=== PATIENT | female | born 1970 | race Caucasian/White ===

== ENCOUNTER → 2018-07-21 | Outpatient (CLI) | payer MEDICAID ==
--- NOTE | 2018-07-27 10:39 | MM ---
Reason for exam: screening (asymptomatic). Last mammogram was performed 5 years and 2 months ago. History: Patient history of other cancer and had first child at age 35. Family history of breast cancer in mother at age 55 and breast cancer in paternal aunt at age 50. Physical Findings: A clinical breast exam by your physician is recommended on an annual basis and results should be correlated with mammographic findings. MG 3D Screening Mammo W/Cad Bilateral CC and MLO view(s) were taken. Prior study comparison: June 03, 2013, mammogram, performed at [facility]. May 03, 2013, mammogram, performed at [facility]. Finding: There is an equal density (isodense), indistinct round mass in the lower outer quadrant, middle position of the right breast. New finding since June 03, 2013 and May 03, 2013. ASSESSMENT: Incomplete: need additional imaging evaluation, BI-RAD 0 RECOMMENDATION: Ultrasound of the right breast. [facility] will attempt to contact patient to return for ultrasound.
== END | disposition home or self-care (01) ==
LOC: RADMAMWWP 07:45
PROVIDERS: ATTEND Family Medicine
DX: Z12.31 Encounter for screening mammogram for malignant neoplasm of breast (principal)
CPT/HCPCS: 77063; 77067

== ENCOUNTER → 2018-08-06 | Outpatient (CLI) | payer MEDICAID ==
--- NOTE | 2018-08-06 08:45 | USB ---
Reason for exam: additional evaluation requested from abnormal screening. History: Patient history of other cancer and had first child at age 35. Family history of breast cancer in mother at age 55 and breast cancer in paternal aunt at age 50. Physical Findings: Nurse did not find any significant physical abnormalities on exam. US Breast Workup Limited RT Right limited breast ultrasound including focal area of concern, retroareolar and axilla demonstrates a 0.7 x 0.9 x 0.4cm oval, cystic lesion at 9 o'clock. These results were verbally communicated with the patient and result sheet given to the patient on 08/06/18. ASSESSMENT: Benign, BI-RAD 2 RECOMMENDATION: Return to routine screening mammogram schedule for both breasts.
== END | disposition home or self-care (01) ==
LOC: RADUSWWP 07:38
PROVIDERS: ATTEND Family Medicine
DX: R92.8 Other abnormal and inconclusive findings on diagnostic imaging of breast (principal)

== ENCOUNTER → 2019-01-05 | Outpatient (CLI) | payer MEDICAID ==
--- NOTE | 2019-01-05 09:18 | XR ---
EXAMINATION TYPE: XR KUB DATE OF EXAM: 01/05/2019 COMPARISON: None INDICATION: Back pain abdomen pain TECHNIQUE: Single view abdomen supine view FINDINGS: There is nonspecific bowel gas within small bowel loops as well as colon. Some mild fecal debris is w ithin the descending colon. Psoas margins are normal. No organomegaly is present. An IUD is within the midline. Gallstones are the right upper quadrant. IMPRESSION: 1. Cholelithiasis. 2. Nonspecific bowel gas pattern
--- NOTE | 2019-01-05 09:25 | XR ---
EXAMINATION TYPE: XR lumbar spine 2 or 3V DATE OF EXAM: 01/05/2019 COMPARISON: None HISTORY: Back pain TECHNIQUE: Three-view lumbar spine FINDINGS: There is narrowing of the L5-S1 disc height. Mild narrowing L4-5 disc height is present. Ve rtebral body heights are preserved. There 5 lumbar-type vertebral bodies. The pedicles are intact. There is a superior endplate Schmorl's node at T12. IMPRESSION: 1. Degenerative disc changes L4-5 L5-S1.
== END | disposition home or self-care (01) ==
LOC: RADXRMAIN 08:14
PROVIDERS: ATTEND Family Medicine
DX: M47.816 Spondylosis without myelopathy or radiculopathy, lumbar region (principal); M47.817 Spondylosis without myelopathy or radiculopathy, lumbosacral region; K80.20 Calculus of gallbladder without cholecystitis without obstruction
CPT/HCPCS: 72100; 74018

== ENCOUNTER → 2019-01-26 | Outpatient (CLI) | payer MEDICAID ==
--- NOTE | 2019-01-26 09:11 | US ---
EXAMINATION TYPE: US abdomen limited DATE OF EXAM: 01/26/2019 COMPARISON: NONE CLINICAL HISTORY: K80.20 Cholelithiasis. xray showed gb stones, increase in gas, belching and stomach pains EXAM MEASUREMENTS: Liver Length: 13.2 cm Gallbladder Wall: 0.3 cm CBD: 0.6 cm Right Kidney: 11.0 x 5.2 x 5.2 cm Pancreas: wnl Liver: wnl Gallbladder: fundal stones seen with neck fold noted Evidence for sonographic Rico's sign: not during exam but patient stays it normally it hurts to push there. CBD: wnl Right Kidney: wnl IMPRESSION: 1. Uncomplicated cholelithiasis.
== END | disposition home or self-care (01) ==
LOC: RADUSWWP 07:29
PROVIDERS: ATTEND Family Medicine
DX: K80.20 Calculus of gallbladder without cholecystitis without obstruction (principal)
CPT/HCPCS: 76705

== ENCOUNTER → 2019-02-07 | Outpatient (CLI) | payer MEDICAID ==
[2019-02-07 11:15] LABS: Basophils # (A) 0.1 k/uL (0-0.2); Basophils % (A) 2 %; Eosinophils # (A) 0.3 k/uL (0-0.7); Eosinophils % (A) 6 %; HCT 44.4 % (34.0-46.0); HGB 14.9 gm/dL (11.4-16.0); Lymphocytes # (A) 1.6 k/uL (1.0-4.8); Lymphocytes % (A) 33 %; MCH 31.8 pg (25.0-35.0); MCHC 33.6 g/dL (31.0-37.0); MCV 94.4 fL (80.0-100.0); Mean Platelet Volume 7.7; Monocytes # (A) 0.3 k/uL (0-1.0); Monocytes % (A) 6 %; Neutrophils # (A) 2.4 k/uL (1.3-7.7); Neutrophils % (A) 51 %; Platelet Count 220 k/uL (150-450); RDW 12.3 % (11.5-15.5); WBC 4.8 k/uL (3.8-10.6)
[2019-02-07 17:59] LABS: Folate, Serum 12.9 ng/mL
[2019-02-07 18:02] LABS: Hemoglobin A1C 5.3 % (4.0-6.0)
== END | disposition home or self-care (01) ==
LOC: LABWHC1 07:40
PROVIDERS: ATTEND Student in an Organized Health Care Education/Training Program
DX: R94.5 Abnormal results of liver function studies (principal); R71.8 Other abnormality of red blood cells; K80.20 Calculus of gallbladder without cholecystitis without obstruction; K58.0 Irritable bowel syndrome with diarrhea; E66.3 Overweight; Z87.891 Personal history of nicotine dependence; Z88.2 Allergy status to sulfonamides
CPT/HCPCS: 36415; 82607; 82746; 83036; 85025

== ENCOUNTER → 2019-02-11 | Outpatient (CLI) | payer MEDICAID | LOC: LABWHC1 07:44 | PROVIDERS: ATTEND Student in an Organized Health Care Education/Training Program | DX: D51.9 Vitamin B12 deficiency anemia, unspecified (principal) | CPT/HCPCS: 36415; 86340 ==

== ENCOUNTER → 2019-11-16 | Outpatient (CLI) | payer MEDICAID ==
--- NOTE | 2019-11-16 09:11 | MR ---
EXAMINATION TYPE: MR lumbar spine wo con DATE OF EXAM: 11/16/2019 COMPARISON: Lumbar spine x-ray January 05, 2019. HISTORY: Bilateral Lumbar radiculopathy , chronic back pain, and history of back surgery per order. L ow back pain for 6 months into bilateral buttocks, history of back surgery 25 years ago per patient. TECHNIQUE: Multiplanar, multisequence imaging of the lumbar spine is performed without IV contrast. FINDINGS: Sagittal images of the lumbar spine show vertebral body heights to remain satisfactory. Sub tle grade 1 retrolisthesis L3 on L4 redemonstrated. Multilevel disc desiccation. Moderate disc space narrowing with mild anterior spurring and heterogeneous Modic type I endplate changes L4-L5 level. Se ike disc space narrowing with vacuum disc phenomenon and heterogeneous Modic type II endplate change s L5-S1 level with mild to moderate anterior spurring. The conus medullaris is normal in position and signal ending mid L1 level. Prominent Schmorl node superior anterior T12 endplate. Additional mild m ultilevel anterior spurring. Axial images show the T12-L1, L1-L2, and the L2-L3 levels all to appear within normal limits. Axial images at the L3-L4 level show mild broad disc bulge with left lateral and foraminal disc protr usion component. There is mild effacement of the anterior thecal sac and [id number] left-sided anterior inferior neural foraminal narrowing due to disc herniation and marginal spurring. Encroachme nt along the anterior-inferior margin exiting left L3 nerve present axial image 14 and sagittal image 1. Right-sided neural foramina is patent. Mild facet arthropathy bilaterally and ligamentum flavum h ypertrophy is seen mildly effacing the posterior lateral thecal sac bilaterally. Axial images at the L4-L5 level show mild to moderate facet degenerative changes and ligamentum flavu m hypertrophy minimally effacing posterolateral thecal sac bilaterally. There is moderate broad disc bulge with left paracentral disc protrusion component effacing the anterior thecal sac. There is mild to moderate right greater than left bilateral inferior neural foraminal narrowing. Encroachment sampson g the inferior margin exiting right L4 nerve flow present sagittal image 10 and axial image 9. Axial images at the L5-S1 level show left paracentral spur disc complex minimally effacing the anteri or thecal sac. There is mild facet degenerative change bilaterally. Left-sided neural foramina shows mild to moderate anterior inferior neural foraminal narrowing encroaching along the inferior aspect o f the exiting L5 nerve axial image 3 and sagittal image 2. Right-sided neural foramen is patent. No suspicious incidental retroperitoneal findings. Paraspinal muscle bulk maintained. IMPRESSION: Multilevel degenerative changes mid to lower lumbar spine as detailed above.
== END | disposition home or self-care (01) ==
LOC: RADMRIMAIN 07:55
PROVIDERS: ATTEND Family Medicine
DX: M47.26 Other spondylosis with radiculopathy, lumbar region (principal); M54.9 Dorsalgia, unspecified; Z98.890 Other specified postprocedural states
CPT/HCPCS: 72148

== ENCOUNTER → 2020-08-14 | Outpatient (CLI) | payer MEDICAID ==
--- NOTE | 2020-08-16 09:11 | MM ---
Reason for exam: screening (asymptomatic). Last mammogram was performed 2 years and 1 month ago. History: Patient history of other cancer and had first child at age 35. Family history of breast cancer in mother at age 55 and breast cancer in paternal aunt at age 50. Physical Findings: A clinical breast exam by your physician is recommended on an annual basis and results should be correlated with mammographic findings. MG 3D Screening Mammo W/Cad Bilateral CC and MLO view(s) were taken. Prior study comparison: July 21, 2018, bilateral MG 3d screening mammo w/cad. June 03, 2013, mammogram, performed at [facility]. The breast tissue is heterogeneously dense. This may lower the sensitivity of mammography. There is chronic nodularity in the left breast laterally. No significant changes when compared with prior studies. ASSESSMENT: Negative, BI-RAD 1 RECOMMENDATION: Routine screening mammogram of both breasts in 1 year.
== END | disposition home or self-care (01) ==
LOC: RADMAMWWP 07:46
PROVIDERS: ATTEND Family Medicine
DX: Z12.31 Encounter for screening mammogram for malignant neoplasm of breast (principal); Z80.3 Family history of malignant neoplasm of breast
CPT/HCPCS: 77063; 77067

== ENCOUNTER → 2020-08-22 | Outpatient (CLI) | payer MEDICAID ==
--- NOTE | 2020-08-22 14:45 | EST ---
EXERCISE STRESS DATE OF SERVICE: 08/22/2020 INDICATION: Chest pain and palpitations. AGE: 50 SEX: F HT: 5'7" WT: 150 lbs. PROTOCOL: Fabian STAGE: 3 DURATION OF EXERCISE: 9:00 HEART RATE REST: 58 BLOOD PRESSURE REST: 140/83 MAXIMUM HEART RATE ACHIEVED: 148 MAXIMUM BLOOD PRESSURE: 162/79 85% MPHR: 145 100% MPHR: 170 METS: 10.3 RESULTS: Baseline EKG shows normal sinus rhythm, normal axis, normal intervals. Patient exercised on Fabian protocol for a total of 9 minutes achieving 10 METS, 85% of predicted maximal heart rate without chest pain or diagnostic ST-segment depression. CONCLUSIONS: 1. Good exercise tolerance. 2. Negative stress test by EKG criteria. MMODL / IJN: [id number] /
== END | disposition home or self-care (01) ==
LOC: RADNMMAIN 07:51
PROVIDERS: ATTEND Family Medicine
DX: R00.2 Palpitations (principal); F17.200 Nicotine dependence, unspecified, uncomplicated
CPT/HCPCS: 93017

== ENCOUNTER → 2021-11-06 | Outpatient (CLI) | payer MEDICAID ==
--- NOTE | 2021-11-07 18:50 | MM ---
Reason for Exam: Screening (asymptomatic). Last mammogram was performed 1 year(s) and 3 month(s) ago. Patient History: Menarche at age 12. First Full-Term at age 35. Late child-bearing (after 30). Other cancer. Paternal aunt had breast cancer, age 50. Mother had breast cancer, age 50. Risk Values: Ivory 5 year model risk: 2.0%. NCI Lifetime model risk: 17.0%. Prior Study Comparison: 06/03/2013 Screening Mammogram, [facility]. 07/21/2018 Bilateral Screening Mammogram, [facility]. 08/14/2020 Bilateral Screening Mammogram, [facility]. Tissue Density: The breast tissue is heterogeneously dense. This may lower the sensitivity of mammography. Findings: Analyzed By CAD. Upper-outer quadrant intramammary lymph node on either side remains unchanged. No significant change from prior exams. Overall Assessment: Benign, BI-RAD 2 Management: Screening Mammogram of both breasts in 1 year. 1. Patient should continue monthly self breast exams. 2. A clinical breast exam by your physician is recommended on an annual basis. 3. This exam should not preclude additional follow-up of suspicious palpable abnormalities. Electronically signed and approved by: Angelica Balderas M.D. Radiologist
== END | disposition home or self-care (01) ==
LOC: RADMAMWWP 11:17
PROVIDERS: ATTEND Family Medicine
DX: Z12.31 Encounter for screening mammogram for malignant neoplasm of breast (principal)
CPT/HCPCS: 77063; 77067

== ENCOUNTER → 2022-09-16 | Outpatient (CLI) | payer MEDICAID ==
[2022-09-16 20:20] LABS: Chloride 105 mmol/L (96-109); Glucose 93 mg/dL (70-110); Potassium 4.6 mmol/L (3.5-5.5); Sodium 142 mmol/L (135-145)
[2022-09-16 20:21] LABS: ALT 15 U/L (8-44); AST 17 U/L (13-35); Albumin 4.4 d/dL (3.8-4.9); Albumin/Globulin Ratio 1.76 Ratio (1.60-3.17); Alkaline Phosphatase 55 U/L (41-126); Calcium 9.5 mg/dL (8.7-10.3); Carbon Dioxide 25.4 mmol/L (21.6-31.8); Globulin 2.5 d/dL (1.6-3.3); T4, Free (Free Thyroxine) 1.33 ng/dL (0.80-1.80); Total Bilirubin 0.3 mg/dL (0.3-1.2); Total Protein 6.9 d/dL (6.2-8.2)
[2022-09-16 20:50] LABS: HCT 42.5 % (37.2-46.3); HGB 13.9 d/dL (12.0-15.0); MCHC 32.7 d/dL (32.0-37.0); MCV 94.9 FL (80.0-97.0); Mean Platelet Volume 11.1 FL (9.5-12.2); NRBC Per 100 WBC 0 X 10*3/uL (0.00-0.01); Platelet Count 191 X 10*3/uL (140-440); RBC 4.48 X 10*6/uL (4.10-5.20); RDW 12.3 % (11.5-14.5); WBC 4.78 X 10*3/uL (4.50-10.00)
[2022-09-16 21:48] LABS: Erythrocyte Sedimentation Rate 13 mm/Hr (0-30)
[2022-09-17 00:08] LABS: Gliadin AB IgA, Deaminated Negative (Negative); Gliadin AB IgA, Unit <0.5 U/mL; Gliadin AB IgG, Deaminated Negative (Negative); Gliadin AB IgG, Unit <0.4 U/mL
== END | disposition home or self-care (01) ==
LOC: LABWHC1 16:01
PROVIDERS: ATTEND Internal Medicine Gastroenterology
DX: R19.4 Change in bowel habit (principal); R14.0 Abdominal distension (gaseous)
CPT/HCPCS: 36415; 80053; 83516; 84439; 84443; 85027; 85652

== ENCOUNTER → 2024-10-18 | Outpatient (CLI) | payer MEDICAID ==
--- NOTE | 2024-10-18 07:51 | MM ---
Reason for Exam: Screening (asymptomatic). Last mammogram was performed 2 year(s) and 11 month(s) ago. Patient History: First Full-Term at age 35. Late child-bearing (after 30). Postmenopausal. Other cancer. Paternal aunt had breast cancer, age 50. Mother had breast cancer, age 50. Risk Values: Ivory 5 year model risk: 2.1%. NCI Lifetime model risk: 14.9%. Prior Study Comparison: 07/21/2018 Bilateral Screening Mammogram, [facility]. 08/14/2020 Bilateral Screening Mammogram, [facility]. 11/06/2021 Bilateral MG 3D screening mammo w/cad, [facility]. Tissue Density: There are scattered areas of fibroglandular density. Findings: Analyzed By CAD. 1.4 cm nodular focal asymmetry right breast middle depth remains unchanged, measuring 1.3 cm back in 2019. There is no suspicious group of microcalcifications or new suspicious mass in either breast. Overall Assessment: Benign, BI-RAD 2 Management: Screening Mammogram of both breasts in 1 year. Patient should continue monthly self-breast exams. A clinical breast exam by your physician is recommended on an annual basis. This exam should not preclude additional follow-up of suspicious palpable abnormalities. Note on Ivory scores and lifetime risk: 1. A Ivory score greater than 3% is considered moderate risk. If this is the case, consider specialist referral to assess eligibility for a risk reducing agent. 2. If overall lifetime risk for the development of breast cancer is 20% or higher, the patient may qualify for future screening with alternating mammogram and breast MRI. [facility], , 10/18/2024 7:47 AM. Electronically signed and approved by: Angelica Balderas M.D. Radiologist
== END | disposition home or self-care (01) ==
LOC: RADMAMWWP 06:55
PROVIDERS: ATTEND Nurse Practitioner Family
DX: Z12.31 Encounter for screening mammogram for malignant neoplasm of breast (principal); R92.323 Mammographic fibroglandular density, bilateral breasts; Z78.0 Asymptomatic menopausal state; Z80.3 Family history of malignant neoplasm of breast
CPT/HCPCS: 77063; 77067